=== PATIENT | male | born 1960 | race Caucasian/White ===

== ENCOUNTER → 2025-08-28 10:59 | Outpatient (CLI) | payer MEDICARE, OTHER, SELFPAY ==
[2025-08-28 12:00] LABS: Hemoglobin A1C% w Est Avg Glu 11.1 % (4.0-6.0)
== END ==
PROVIDERS: PCP Family Medicine; Referring Provider Family Medicine; Visit Provider Family Medicine
DX: E11.9 Type 2 diabetes mellitus without complications (principal)
CPT/HCPCS: 83036